=== PATIENT | female | born 1975 | race Caucasian/White ===

== ENCOUNTER 2025-05-04 06:07 | Day surgery (SDC) | payer OTHER, SELFPAY ==
--- OUTSIDE RECORDS SUMMARY | 2025-05-04 06:30 | XMS_ITS | Clinical Summary ---
Author Organization [facility] Address [address] [place] [address] Care Team Providers Care Triage Assistant Name Role Phone Chelsie Norris Primary Care Provider [phone] Social History Tobacco Use Types Packs/Day Years Used Date Smoking Tobacco: Never Assessed Comments Unknown Sex and Gender Information Value Date Recorded Sex Assigned at Not on file Legal Sex Female 5:35 PM CDT Gender Identity Not on file Sexual Orientation Not on file Plan of Treatment Health Maintenance Due Date Last Done Comments Colorectal Cancer Screening Colonoscopy (10 Years) 1975 Annual Physical 1978 Hepatitis C 1993 DTaP, Tdap and Td Vaccines ( 1 - Tdap) 1994 Hepatitis B Vaccines (1 of 3 - 19+ 3-dose series) 1994 Cervical Cancer Screening Pa p Smear (Age 30 to 64) Every 3 Years 06/24/2015 06/24/2012 Cervical Cancer Screening Pa p with HPV Testing (Age 30 to 64) Every 5 Years 06/24/2017 06/24/2012 Cervical Cancer Screening wi th HPV 06/24/2017 COVID-19 Vaccine (2023-2 5 season) 2024 10/28/2021, 02/06/2021, 01/15/2021 Mammogram Screening 08/08/2026 08/08/2024, 08/16/2022, 02/03/2021 Meningococcal B Vaccine Aged Out No l onger eligible based on patient's age to complete this topic Meningococcal Vaccine Aged Out No tristen macario eligible based on patient's age to complete this topic Pneumococcal Vaccine: Pediatrics (0 to 5 Years) and At-Risk Patients (6 to 49 Years) Aged Out No longer eligible b ased on patient's age to complete this topic RSV Immunizations Under 20 Months Aged Out No longer eligible b ased on patient's age to complete this topic Insurance [id number] Care Teams Triage Assistant Relationship Specialty Start Date End Date Chelsie Norris PA PCP - General PHYSICIAN LEADING FIREFIGHTER 05/04/22
--- OUTSIDE RECORDS SUMMARY | 2025-05-04 06:30 | XMS_ITS | Clinical Summary ---
Author Organization [facility] Address [address] [place] [address] Phone Care Team Providers Care Data Conversion Developer Name Role Phone Dar Ratliff MD Primary Care Provider [phone] Allergies Active Allergy Reactions Criticality Noted Date Comments Penicillin G Unknown 05/08/2012 Medications ibuprofen (MOTRIN) 600 mg Oral tablet Take 1 Tab by mouth every 6 hours. 40 Tab 1 05/12/2012 Active vitamin E 400 unit capsule Take 400 Units by mouth daily. Active evening primrose oil (EVENING PRIMROSE ORAL) Take 1,000 mg by mouth. Active Active Problems Patient Care Coordination No te Formatting of this note migh t be different from the original. Primary Care: Dar Ratliff MD Referring Provider: Mable Falk MD [address] [place] [address] Other: Problem Noted Date Diagnosed Date In vitro fertilization 10/20/2019 tri/tri triplets, elev bp (l abs wnl), conc growth 04/11, CS for del 05/08 or 05/09? 05/08/2012 05/08, triplets, GHTN 05/08/2012 Encounters Date Type Department Care Team Description 04/29/2025 External Device Data [facility] ABSTRACTION Provider, Abstract 04/29/2025 External Device Data [facility] ABSTRACTION Provider, Abstract 04/01/2025 External Device Data [facility] ABSTRACTION Provider, Abstract 03/05/2025 External Device Data [facility] ABSTRACTION Provider, Abstract 03/05/2025 External Device Data [facility] ABSTRACTION Provider, Abstract 03/04/2025 External Device Data [facility] ABSTRACTION Provider, Abstract from Last 3 Months Family History Medical History Relation Name Comments Diabetes Father Stroke Father Pancreatic Cancer Maternal Grandfather Colon Cancer Mother Hypertension Mother Healthy Sister Relation Name Status Comments Father Alive Maternal Grandfather Mother Alive Sister Alive Social History Tobacco Use Types Packs/Day Years Used Date Smoking Tobacco: Never Smokeless Tobacco: Never Tobacco Cessation:Counseling Given: Yes Alcohol Use Standard Drinks/Week Comments Yes 0 (1 standard drink = 0.6 oz pur e alcohol) rarely Comments No Sex and Gender Information Value Date Recorded Sex Assigned at Not on file Legal Sex Female 6:07 AM MANAGER 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 Gender Identity Not on file Sexual Orientation Not on file Occupation Industry Job Start Date Job End Date Not on file Not on file Not on file Not on file Last Filed Vital Signs Vital Sign Reading Time Taken Comments Blood Pressure 110/64 02/03/2021 10:57 AM CDT Pulse 90 05/12/2012 9:00 AM CDT Temperature 35.4 C (95.7 F) 05/12/2012 9:00 AM CDT Respiratory Rate 18 05/12/2012 9:00 AM CDT Oxygen Saturation 98% 05/12/2012 9:00 AM CDT Inhaled Oxygen Concentration - - Weight 104.2 kg (229 lb 12.8 oz) 2020 10:57 AM CDT Height 167.6 cm (5' 6) 02/03/2021 10:5 7 AM CDT Body Mass Index 37.09 02/03/2021 10:57 AM CDT Plan of Treatment Health Maintenance Due Date Last Done Comments DTAP/TDAP/TD VACCINES (1 - Tdap) 1994 HEPATITIS B VACCINES (1 of 3 - 19+ 3-dose series) 1994 PAP SMEAR 06/24/2015 06/24/2012 CERVICAL CANCER SCREENING 06/24/2017 HPV/Cotest (21-29) 06/24/2017 06/24/2012 HPV/Cotest (30-65) 06/24/2017 06/24/2012 COLORECTAL SCREENING 2020 Colorectal Cancer Screening 2020 FIT-DNA Q 3 years 2020 FIT/FOBT Q 1 year 2020 Flex Sig/CT Colonography Q 5 years 2020 INFLUENZA VACCINE (#1) 2025 07/17/2018 BREAST CANCER SCREENING 08/08/2025 08/08/20 24, 08/16/2022, 02/03/2021, Additional history exists Procedures Procedure Name Priority Date/Time Associated Diagnosis Comments MAMMO 3D MARILEE SCREEN BILAT W OR WO CAD Routine 08/08/2024 12:51 PM CDT Encounter for mammogram to establish baseline mammogram CERV/VAG CYTOPATH, THIN PREP IMAGR RFLX HPV Routine 06/24/2012 9:31 PM CDT Screening for malignant neoplasm of the cervix from Last 3 Months or Most Recently Relevant to Health Maintenance Results * MAMMO 3D MARILEE SCREEN BILAT W OR WO CAD (08/08/2024 12:51 PM CDT) Anatomical Region Laterality Modality Breast Bilateral Mammography 08/08/2024 12:5 1 PM CDT Impressions 08/08/2024 1:54 PM CDT IMPRESSION: No suspicious findings to suggest malignancy in either breast. Annual mammography is recommended. OVERALL FINAL ASSESSMENT: BI-RADS CATEGORY 1: Negative DICTATION LOCATION: [facility] 08/08/2024 1:54 PM CDT BILATERAL SCREENING DIGITAL MAMMOGRAM WITH 3D TOMOSYNTHESIS AND CAD DATE: 08/08/2024 12:51 PM HISTORY: Routine screening. TECHNIQUE: Full-field digital craniocaudal and mediolateral oblique projections of both breasts were obtained. Low-dose full-field digital breast tomosynthesis examination was performed with 2D and 3D acquisitions. Examination is read in conjunction with computer aided detection. COMPARISON: 08/16/2022 and older. BREAST COMPOSITION: There are scattered areas of fibroglandular density. FINDINGS: No suspicious mass, suspicious microcalcifications, or architectural distortion is identified in either breast. Computer aided detection was used in the interpretation of this examination. Procedure Note Amilcar Huggins MD - 08/08/2024 BILATERAL SCREENING DIGITAL MAMMOGRAM WITH 3D TOMOSYNTHESIS AND CAD DATE: 08/08/2024 12:51 PM HISTORY: Routine screening. TECHNIQUE: Full-field digital craniocaudal and mediolateral oblique projections of both breasts were obtained. Low-dose full-field digital breast tomosynthesis examination was performed with 2D and 3D acquisitions. Examination is read in conjunction with computer aided detection. COMPARISON: 08/16/2022 and older. BREAST COMPOSITION: There are scattered areas of fibroglandular density. FINDINGS: No suspicious mass, suspicious microcalcifications, or architectural distortion is identified in either breast. Computer aided detection was used in the interpretation of this examination. IMPRESSION: No suspicious findings to suggest malignancy in either breast. Annual mammography is recommended. OVERALL FINAL ASSESSMENT: BI-RADS CATEGORY 1: Negative DICTATION LOCATION: [facility] Mable Falk MD MAMMO ORDERABLES Final Result * CERV/VAG CYTOPATH, THIN PREP IMAGR RFLX HPV (06/24/2012 9:31 PM CDT) Director Of Safety And Security Pap Comment This Pap test has been evaluated with computer assisted technology. Based on the cytology result, reflex High Risk HPV DNA testing was not performed. [facility] [employer] [facility] PAP INTERP Negative for intraepithelial lesion or malignancy. [facility] [employer] [facility] ADEQUACY: Satisfactory for evaluation. Endocervical/trans formation zone component present. [facility] [employer] [facility] CLINICAL INFORMATION 6WKS [facility] SOURCE Cervix [facility] PREV PAP: Information not provided [facility] [employer] [facility] CYTOTECHNOLOGI ST: MVB, CT(ASCP) [facility] [employer] [facility] LAST MENSTRUAL PERIOD Information not provided [facility] PREV BX: Information not provided [facility] Specimen from uterine cervix (specimen) 06/24/2012 9:31 PM CDT 06/24/2012 9:31 PM CDT Narrative [facility] - 06/26/2012 4:03 PM CDT APPP: 6 wks us Carla Sen MD PATHOLOGY/CYTOLOGY ORDERABLES Fi nal Result [facility] CARLOS# [id number] [address] [place] [address] from Last 3 Months or Most Recently Relevant to Health Maintenance Insurance * Guarantor: Mila Hart Account Type Relation to Patient Date of Phone Billing Address Personal/Family Self 1975 x23 (Work) [address] [place] [id number] [place] [employer] Directives For more information, please contact: [phone] * Full Code (Latest Code Status on File) Date Activated Date Inactivated Comments 05/08/2012 11:53 PM 05/12/2012 9:34 PM Care Teams Data Conversion Developer Relationship Specialty Start Date End Date Dar Ratliff MD [address] [place] [phone] PCP - General Internal Medicine 05/19/19
--- OUTSIDE RECORDS SUMMARY | 2025-05-04 06:30 | XMS_ITS | Encounter Summary ---
Author Organization [facility] Address [address] [place] [address] Care Team Providers Care Computer Forensics Investigator Name Role Phone Dar Ratliff MD Primary Care Provider [phone] Encounter Details Date Type Department Care Team (Late st Contact Info) Description 04/29/2025 External Device Data [facility] ABSTRACTION Provider, Abstract NO ADDRESS ON FILE Social History Tobacco Use Types Packs/Day Years Used Date Smoking Tobacco: Never Smokeless Tobacco: Never Alcohol Use Standard Drinks/Week Comments Yes 0 (1 standard drink = 0.6 oz pur e alcohol) rarely Comments No Sex and Gender Information Value Date Recorded Sex Assigned at Not on file 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
[2025-05-04 06:38] VITALS: BP 115/76; PULSE 73; RESP 16; TEMP 36.9; O2SAT 99
[2025-05-04] MEDS: LACTATED RINGERS 1,000 ML 150 ML IV CONT (06:40)
--- NOTE | 2025-05-04 07:18 | WPDANESEPPF ---
Anes - Initial Pre Proc Eval Procedure: Operation Date: 05/04/25 07:30 Proposed Procedures p Diagnostic Colonoscopy - Luís Wallis DO Date/Time: 05/04/25 07:18 Surgeon: Luís Wallis DO Pre Op Diagnosis: Family HX Malignant Neoplasm of Digestive Organs Patient Data Age: 49 Gender: F Height: 1.68 m Weight: 102.65 kg Last Vital Signs Temp 98.5 F 05/04/25 06:38 Pulse 73 05/04/25 06:38 Resp 16 05/04/25 06:38 BP 115/76 05/04/25 06:38 Pulse Ox 99 05/04/25 06:38 O2 Del Method Room Air 05/04/25 06:38 Allergies Allergy/AdvReac Type Severity Reaction Status Date / Time Penicillins Allergy Unknown Unknown Verified 05/04/25 06:37 Home Medications ?Medication ?Instructions ?Recorded ?Confirmed ?Type cholecalciferol (vitamin D3) 125 125 mcg PO DAILY 08/13/24 05/04/25 History mcg (5,000 unit) capsule omeprazole 20 mg tablet,delayed 20 mg PO DAILY 08/13/24 05/04/25 History release L.helveticus-Bifidobacterium 2 cap PO DAILY #60 caps 10/21/24 05/04/25 Rx long-mag cit 3 billion cell-57 mg capsule (Mood Support Probiotic) USA[employer] Core Minerals See Rx Instructions .Route 10/21/24 05/04/25 Rx .COMPLEX #30 caps Aleyda Antioxidants See Rx Instructions .Route 10/21/24 05/04/25 Rx .COMPLEX #30 caps biotin 10,000 mcg capsule 10,000 mcg PO DAILY #30 caps 10/21/24 05/04/25 Rx evening primrose oil-linoleic 1 cap PO DAILY #30 caps 10/21/24 05/04/25 Rx acid-gamolenic acid 1,000 mg capsule vitamin E (dl, acetate) 180 mg 180 mg PO DAILY #30 caps 10/21/24 05/04/25 Rx (400 unit) capsule Patient hx anesthesia problems: none Family hx anesthesia problems: none Results Review: All pre-operative results and documents have been reviewed as part of the pre-operative evaluation. [facility] Past Medical History Medical History (Updated 10/21/24 @ 15:22 by Chelsie Norris PA-C) Hyperglycemia Prolapsed internal hemorrhoids, grade 3 No pertinent family history Surgical History Surgical History (Updated 05/03/23 @ 12:05 by Wendy Guerra RT(R)) H/O hemorrhoidectomy 10/01/20 excision of thrombosed external hemorrhoid History of delivery (05/08/12) triplets History of laparoscopic cholecystectomy (05/2014) Family History Family History (Updated 05/03/23 @ 12:07 by Wendy Guerra RT(R)) Mother Family history of obesity Hypertension Heart disease Carcinoma of colon Father Family history of rheumatoid arthritis Diabetes mellitus Heart disease Grandparent FH: prostate cancer Grandparent Lung cancer Social History Social History (Updated 10/21/24 @ 10:32 by Arsen Cota) Social History: 10/18/24 very confident with medical forms Smoking status: Never smoker Alcohol intake: current Alcohol use details: social Substance use: never Substance use type: does not use Do You Feel Safe in your Home?: Yes Lack of Transportation: No Lack of Food: Never True Current Housing: I Have Housing Concerned About Future Housing: No Difficulty Paying Gas/Electric Bills: No Difficulty Paying for Meds: No Currently Unemployed: No Education: Bachelor's Degree Difficulty w/ Childcare or Family Care: No Living arrangements: with family Occupation/Education: occupation 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 Informed Consent: The patient's anesthetic plan and its attendant risks and benefits were discussed with the patient/family/POA. Questions were solicited and answers provided to the satisfaction of the patient/family/POA.
--- NOTE | 2025-05-04 07:30 | PM.IMHP ---
H&P: HPI History of Present Illness Date/Time: 05/04/25 07:30 Chief Complaint: fam hx colon cancer Narrative: This is a 49-year-old woman who presents for colonoscopy. Her last colonoscopy was over 20 years ago. Denies hematochezia/melena. +fam hx colon cancer in her mother. Review of Systems Review of Systems: All systems reviewed & are unremarkable except as noted in HPI and below Constitutional: Constitutional: Denies chills, Denies fever(s), Denies headache(s) and Denies weight loss Eyes: Eyes: Denies change in vision ENT: Denies dizziness, Denies headache(s), Denies neck mass and Denies throat swelling Cardiovascular: Cardiovascular: Denies chest pain, Denies lightheadedness and Denies dyspnea Respiratory: Respiratory: Denies cough, Denies dyspnea and Denies wheezing Gastrointestinal: Gastrointestinal: Denies abdominal pain, Denies change in bowel habits, Denies nausea and Denies vomiting Genitourinary: Genitourinary: Denies hematuria and Denies dysuria Musculoskeletal: Musculoskeletal: Reports as per HPI Integumentary/Breasts: Skin/Breast: Reports as per HPI Neurologic: Denies dizziness and Denies headache(s) Allergic/Immunologic: Allergic/Immunologic: Denies throat swelling and Denies wheezing [facility] Past Medical History Medical History (Updated 10/21/24 @ 15:22 by Chelsie Norris PA-C) Hyperglycemia Prolapsed internal hemorrhoids, grade 3 No pertinent family history Surgical History Surgical History (Updated 05/03/23 @ 12:05 by Wendy Guerra, RT(R)) H/O hemorrhoidectomy 10/01/20 excision of thrombosed external hemorrhoid History of delivery (05/08/12) triplets History of laparoscopic cholecystectomy (05/2014) Family History Family History (Updated 05/03/23 @ 12:07 by Wendy Guerra, RT(R)) Mother Family history of obesity Hypertension Heart disease Carcinoma of colon Father Family history of rheumatoid arthritis Diabetes mellitus Heart disease Grandparent FH: prostate cancer Grandparent Lung cancer Social History Social History (Updated 10/21/24 @ 10:32 by Arsen Cota) Social History: 10/18/24 very confident with medical forms Smoking status: Never smoker Alcohol intake: current Alcohol use details: social Substance use: never Substance use type: does not use Do You Feel Safe in your Home?: Yes Lack of Transportation: No Lack of Food: Never True Current Housing: I Have Housing Concerned About Future Housing: No Difficulty Paying Gas/Electric Bills: No Difficulty Paying for Meds: No Currently Unemployed: No Education: Bachelor's Degree Difficulty w/ Childcare or Family Care: No Living arrangements: with family Occupation/Education: occupation 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 Gender identity (if verbalized by the patient): Female Meds Home Medications and Allergies Home Medications ?Medication ?Instructions ?Recorded ?Confirmed ?Type cholecalciferol (vitamin D3) 125 125 mcg PO DAILY 08/13/24 05/04/25 History mcg (5,000 unit) capsule omeprazole 20 mg tablet,delayed 20 mg PO DAILY 08/13/24 05/04/25 History release L.helveticus-Bifidobacterium 2 cap PO DAILY #60 caps 10/21/24 05/04/25 Rx long-mag cit 3 billion cell-57 mg capsule (Mood Support Probiotic) [employer] Core Minerals See Rx Instructions .Route 10/21/24 05/04/25 Rx .COMPLEX #30 caps Aleyda Antioxidants See Rx Instructions .Route 10/21/24 05/04/25 Rx .COMPLEX #30 caps biotin 10,000 mcg capsule 10,000 mcg PO DAILY #30 caps 10/21/24 05/04/25 Rx evening primrose oil-linoleic 1 cap PO DAILY #30 caps 10/21/24 05/04/25 Rx acid-gamolenic acid 1,000 mg capsule vitamin E (dl, acetate) 180 mg 180 mg PO DAILY #30 caps 10/21/24 05/04/25 Rx (400 unit) capsule Allergies Allergy/AdvReac Type Severity Reaction Status Date / Time Penicillins Allergy Unknown Unknown Verified 05/04/25 06:37 Vital Signs Vital Signs - 24 hr 05/04/25 06:38 Temperature 98.5 F Pulse Rate 73 Respiratory Rate 16 Blood Pressure 115/76 Pulse Oximetry 99 Oxygen Delivery Room Air Exam Const: General: no acute distress and alert Orientation/consciousness: patient oriented x3 HENMT: Head: normocephalic and atraumatic Ears: hearing grossly normal bilaterally Face/Nose/Sinus: Normal nares present Mouth: Yes Normal oral and palatal mucosa present Eyes: Periorbital: periorbital findings normal Sclera: sclerae normal EOM: EOMs intact bilaterally Neck: Neck: normal visual inspection, no lymphadenopathy and trachea midline Chest: Chest palpation & inspection: normal inspection of the chest Resp: Effort & Inspection: normal respiratory effort Auscultation: clear to auscultation bilaterally Cardio: Jugular venous distension: no JVD Rate: regular rate Rhythm: regular rhythm Heart sounds: S1 normal heart sound present and S2 normal heart sound present Peripheral pulses: Peripheral pulses 2+ throughout GI: Inspection: normal to inspection GI Palp: Yes Soft to palpation, No Tenderness to palpation present (GI), No Guarding due to palpation present (GI) and No Rebound tenderness present Percussion: Yes normal to percussion Auscultation: normal bowel sounds : General: Yes no CVA tenderness Back/Spine/Pelvis: Back: no CVA tenderness Neuro: General: patient oriented x3, no focal motor deficits and CN's II-XI intact bilaterally Cognition (Neuro): normal cognition Speech: normal speech Motor exam (neuro): 5/5 motor strength present throughout Extrem: General: capillary refill normal and no clubbing, cyanosis or edema Assessment and Plan Assessment and plan (1) Family history of colon cancer: Code(s): Z80.0 - Family history of malignant neoplasm of digestive organs Status: Acute Assessment and Plan: I have recommended colonoscopy. I have discussed the procedure, risks, benefits, and alternatives. Questions were answered. Patient is agreeable to proceed.
--- NOTE | 2025-05-04 07:39 | WPDANESPN ---
Anes - Prog Note Post-Op Date/Time: 05/04/25 07:39 Vital Signs: Last Vital Signs Temp 98.5 F 05/04/25 06:38 Pulse 73 05/04/25 06:38 Resp 16 05/04/25 06:38 BP 115/76 05/04/25 06:38 Pulse Ox 99 05/04/25 06:38 O2 Del Method Room Air 05/04/25 06:38 Pain Score (VAS): no Patient Feedback: Patient satisfied with anesthetic care.
[2025-05-04 07:53] VITALS: BP 102/66; PULSE 66; RESP 14; O2SAT 99
[2025-05-04 08:03] VITALS: BP 97/66; PULSE 64; RESP 15; O2SAT 100
[2025-05-04 08:13] VITALS: BP 103/69; PULSE 63; RESP 15; O2SAT 100
[2025-05-04 08:17] VITALS: BP 102/61; PULSE 62; RESP 14; O2SAT 100
== END 2025-05-04 08:27 | disposition home or self-care (01) ==
PROVIDERS: PCP Physician Assistant Medical; Visit Provider Surgery
PROC: 0DJD8ZZ Inspection of Lower Intestinal Tract, Via Natural or Artificial Opening Endoscopic (ICD-10-PCS; CPT 45378; principal; 2025-05-04 07:30)
DX: Z12.11 Encounter for screening for malignant neoplasm of colon (principal); Z80.0 Family history of malignant neoplasm of digestive organs
CPT/HCPCS: 45380

== ENCOUNTER 2025-05-04 10:52 | Outpatient (NON) | payer SELFPAY ==
--- NOTE | 2025-05-04 | S_PTH ---
PATIENT: Mila Hart LOC: ANAB #:[id number] AGE/SX: 49/F ROOM: RE05/04/[address]: Luís Wallis DO : 1975 BED: DIS: 05/04/2025 SPEC #: [id number] RECD: 05/05/25 11:29 STATUS: TONIO REDarling #: [id number] ANANYA: 05/04/25 00:[address]: Luís Wallis DEPT: [facility] Surgical RECD BY: Erlinda Bustamante ENTERED: 05/05/25 11:33 SP TYPE: Surgical OTHR DR: Chelsie Norris PA-C Tissues: A - Rectal Biopsy B - Rectal Biopsy Procedures: Hematoxylin and Eosin Stain Gross and Microscopic Level 4
--- OUTSIDE RECORDS SUMMARY | 2025-05-05 11:05 | XMS_ITS | Clinical Summary ---
Author Organization [facility] Address [address] [place] [id number] Care Team Providers Care Product Safety Lead Name Role Phone Chelsie Norris Primary Care Provider [phone] Social History Tobacco Use Types Packs/Day Years [...] patient's age to complete this topic Insurance * Guarantor: Mila Hart Account Type Relation to Patient Date of Phone Billing Address Personal/Family Self [address] [place] [address] Care Teams Product Safety Lead Relationship Specialty Start Date End Date Chelsie Norris PA PCP - General PHYSICIAN SUPERVISOR ROAD ADMINISTRATOR 05/04/22
== END 2025-05-04 10:53 | disposition home or self-care (01) ==
PROVIDERS: PCP Physician Assistant Medical; Visit Provider Surgery
DX: Z80.0 Family history of malignant neoplasm of digestive organs (principal)
CPT/HCPCS: 88305